=== PATIENT | female | born 1970 | race Caucasian/White ===

== ENCOUNTER 2017-06-19 15:27 | Emergency (ER) | payer MEDICARE, OTHER ==
[~2017-06-19] VITALS: Ht 170.2 cm; Wt 95.0 kg
[~2017-06-19 15:27] MED LIST: ALBU18HF2 INH; CETI10TA14 PO; CYAN10007 IM; DIAZ10TA PO; DIVA250T6 PO; DOCU-28 PO; FLUT16SP26 NS; METH750T3 PO; NARA2.5T2 PO; ONDA8TAB13 PO; POLY119P2 PO; PROC10TA PO; SERT100T10 PO; TOP100T PO; TRAM50TA2 PO; VENL150C58 PO; VENL75CA61 PO; ZOLP10TA5 PO
[2017-06-19] MEDS ORDERED: normal saline 1000ML IV soln IVB STA (15:36)
[2017-06-19] MEDS ORDERED: methylPREDNISolone sod succ 125mg/2ml vial IV ONE (15:40)
[2017-06-19] MEDS ORDERED: famotidine/PF 10 mg/ml inj IV ONE (15:40)
[2017-06-19] MEDS ORDERED: PRED10TA PO (16:41)
[2017-06-19] MEDS ORDERED: EPIN0.3P8 IM (16:41)
[2017-06-19 18:06] VITALS: BP 116/62
== END 2017-06-19 18:24 | disposition home or self-care (01) ==
LOC: ER 15:28
DX: T78.1XXA Other adverse food reactions, not elsewhere classified, initial encounter (principal); G43.909 Migraine, unspecified, not intractable, without status migrainosus; J45.909 Unspecified asthma, uncomplicated; G89.29 Other chronic pain; Z90.710 Acquired absence of both cervix and uterus; Z90.49 Acquired absence of other specified parts of digestive tract; Z98.84 Bariatric surgery status; Z56.0 Unemployment, unspecified; Z88.0 Allergy status to penicillin; Z88.8 Allergy status to other drugs, medicaments and biological substances; Z79.899 Other long term (current) drug therapy; Y92.89 Other specified places as the place of occurrence of the external cause
CPT/HCPCS: 96361; 96374; 96375; 99285; J2930

== ENCOUNTER 2017-09-02 08:53 | Emergency (ER) | payer MEDICARE, OTHER ==
[~2017-09-02] VITALS: Ht 172.7 cm; Wt 84.8 kg
[~2017-09-02 08:53] MED LIST changes: +EPIN0.3P8 IM; +PRED10TA PO; -PROC10TA PO; +PROC10TA10 PO
[2017-09-02 09:05] VITALS: BP 134/84
[2017-09-02] MEDS ORDERED: FLUT16SP2 BOTHNARES (09:19)
== END 2017-09-02 09:26 | disposition home or self-care (01) ==
LOC: ER 08:54
DX: J30.9 Allergic rhinitis, unspecified (principal); H92.01 Otalgia, right ear; G43.909 Migraine, unspecified, not intractable, without status migrainosus; G89.29 Other chronic pain; F17.210 Nicotine dependence, cigarettes, uncomplicated; Z90.49 Acquired absence of other specified parts of digestive tract; Z90.710 Acquired absence of both cervix and uterus; Z56.0 Unemployment, unspecified; Z98.84 Bariatric surgery status; Z88.0 Allergy status to penicillin; Z79.899 Other long term (current) drug therapy
CPT/HCPCS: 99283

== ENCOUNTER 2018-05-07 07:56 | Emergency (ER) | payer MEDICARE, OTHER ==
[~2018-05-07] VITALS: Ht 172.7 cm; Wt 75.0 kg
[~2018-05-07 07:56] MED LIST changes: +DIVA-74 PO; -DIVA250T6 PO; +FLUT16SP2 BOTHNARES
[2018-05-07 08:10] VITALS: BP 105/69
[2018-05-07] MEDS ORDERED: TRAM50TA2 PO (08:48)
== END 2018-05-07 09:12 | disposition home or self-care (01) ==
LOC: ER 07:57
DX: S93.401A Sprain of unspecified ligament of right ankle, initial encounter (principal); G43.909 Migraine, unspecified, not intractable, without status migrainosus; G89.29 Other chronic pain; Z90.49 Acquired absence of other specified parts of digestive tract; Z90.710 Acquired absence of both cervix and uterus; Z90.89 Acquired absence of other organs; Z98.890 Other specified postprocedural states; Z88.0 Allergy status to penicillin; Z88.8 Allergy status to other drugs, medicaments and biological substances; Z79.899 Other long term (current) drug therapy; Z56.0 Unemployment, unspecified; W19.XXXA Unspecified fall, initial encounter; Y93.89 Activity, other specified; Y92.89 Other specified places as the place of occurrence of the external cause; Y99.8 Other external cause status
CPT/HCPCS: 73610; 99284

== ENCOUNTER 2018-05-27 09:56 | Emergency (ER) | payer MEDICARE, OTHER ==
[~2018-05-27] VITALS: Ht 172.7 cm; Wt 80.5 kg
[2018-05-27 10:02] VITALS: BP 105/63
[2018-05-27] MEDS ORDERED: acetaminophen 325mg tablet PO ONE (12:00)
[2018-05-27] MEDS ORDERED: ondansetron 4mg rapidly disintigrating tab PO ONE (12:00)
[2018-05-27] MEDS ORDERED: HYDROcodone/acetaminophen 5mg/325mg tablet PO ONE (12:00)
[2018-05-27] MEDS ORDERED: morphine 4 MG/ML inj SYRINge IM ONE (12:25)
[2018-05-27] MEDS ORDERED: ketorolac trometh inj. 60 MG/2 ML VIAL IM ONE (12:55)
[2018-05-27] MEDS ORDERED: HYDR-3965 PO (12:58)
[2018-05-31] MEDS ORDERED: HYDR-3965 PO (09:11)
== END 2018-05-27 13:56 | disposition home or self-care (01) ==
LOC: ER 09:57
DX: S92.321A Displaced fracture of second metatarsal bone, right foot, initial encounter for closed fracture (principal); S92.331A Displaced fracture of third metatarsal bone, right foot, initial encounter for closed fracture; G43.909 Migraine, unspecified, not intractable, without status migrainosus; G89.29 Other chronic pain; M54.9 Dorsalgia, unspecified; Z90.49 Acquired absence of other specified parts of digestive tract; Z90.710 Acquired absence of both cervix and uterus; Z56.0 Unemployment, unspecified; Z88.0 Allergy status to penicillin; Z88.8 Allergy status to other drugs, medicaments and biological substances; X50.1XXA Overexertion from prolonged static or awkward postures, initial encounter; Y93.89 Activity, other specified; Y92.89 Other specified places as the place of occurrence of the external cause; Y99.8 Other external cause status
CPT/HCPCS: 73630; 93005; 96372; 99284; J1885; J2270

== ENCOUNTER 2018-06-02 07:07 | Inpatient (IN) | payer MEDICARE, OTHER | END 2018-06-04 14:05 | disposition home or self-care (01) | LOC: ER 07:07 → ED HOLD 10:44 → ORTHO 4S 16:15 | DX: S92.321A Displaced fracture of second metatarsal bone, right foot, initial encounter for closed fracture (principal); S92.331A Displaced fracture of third metatarsal bone, right foot, initial encounter for closed fracture; F31.9 Bipolar disorder, unspecified; J06.9 Acute upper respiratory infection, unspecified; G89.4 Chronic pain syndrome ==

== ENCOUNTER 2018-06-15 10:21 | Day surgery (SDC) | payer MEDICARE ==
[2018-06-10 12:47] LABS: BASOPHILS % (AUTO) 0.6 % (0-1); EOSINOPHILS % (AUTO) 0.4 % (0-6); LYMPHOCYTES # (AUTO) 2.1 X10'3 (1.1-4.8); LYMPHOCYTES % (AUTO) 29.4 % (21-51); MEAN CORPUSCULAR HEMOGLOBIN 32.3 PG (27.0-31.0); MEAN CORPUSCULAR HGB CONC 33.4 g/dL (33.0-36.5); MEAN CORPUSCULAR VOLUME 96.8 FL (78-98); MEAN PLATELET VOLUME 8.1 FL (7.4-10.4); MONOCYTES # (AUTO) 0.6 X10'3 (0-0.9); MONOCYTES % (AUTO) 8.2 % (2-12); NEUTROPHILS # (AUTO) 4.3 X10'3 (1.8-7.7); NEUTROPHILS % (AUTO) 61.4 % (42-75); PRE OP HEMATOCRIT 42.2 % (35.0-45.0); PRE OP HEMOGLOBIN 14.1 g/dL (12.0-16.0); PRE OP PLATELET COUNT 373 X10'3 (140-440); RED BLOOD COUNT 4.36 X10'6 (4.20-5.60); RED CELL DISTRIBUTION WIDTH 13.1 % (11.5-14.5)
[2018-06-10 14:52] LABS: ALBUMIN 3.4 G/DL (3.4-5.0); ALBUMIN/GLOBULIN RATIO 0.9 (1.1-1.5); ALKALINE PHOSPHATASE 118 IU/L (46-116); BLOOD UREA NITROGEN 13 MG/DL (7-18); BUN/CREATININE RATIO 18.6 (6.6-38.0); CALCIUM 9.3 MG/DL (8.5-10.1); CHLORIDE 107 MMOL/L (99-107); PRE OP ALT 34 U/L (30-65); PRE OP ANION GAP 10 (8-16); PRE OP AST 20 U/L (10-37); PRE OP BILIRUB, TOTAL 0.3 MG/DL (0.0-1.0); PRE OP GLUCOSE 98 MG/DL (70-104); PRE OP POTASSIUM 4.2 MMOL/L (3.4-5.1); PRE OP SODIUM 140 MMOL/L (135-145); TOTAL CARBON DIOXIDE 23.3 MMOL/L (24-32); TOTAL PROTEIN 7.4 G/DL (6.4-8.2); eGFR 89 ML/MIN
[~2018-06-15] VITALS: Ht 170.2 cm; Wt 74.0 kg
[2018-06-15] VITALS (10 sets, daily range): BP systolic 94–106; BP diastolic 47–78
[~2018-06-15 10:21] MED LIST changes: +ARIP5TAB4 PO; +BACL20TA PO; -CETI10TA14 PO; +CLON-528 PO; -CYAN10007 IM; -DIAZ10TA PO; -DOCU-28 PO; -FLUT16SP2 BOTHNARES; -FLUT16SP26 NS; -METH750T3 PO; -NARA2.5T2 PO; -ONDA8TAB13 PO; +PER5325T PO; -POLY119P2 PO; -PRED10TA PO; -PROC10TA10 PO; -SERT100T10 PO; -TRAM50TA2 PO; +TRAZ300T2 PO; -VENL150C58 PO; -VENL75CA61 PO; -ZOLP10TA5 PO; +acetaminophen 325mg tablet PO ONE; +albuterol 2.5 MG/3 ML nebule NEB ONE; +ceFAZolin 2gm in dextrose, iso 100 ML IV ONE; +famotidine 20mg tablet PO ONE; +gabapentin 300mg capsule PO ONE; +oxyCODONE SR 10mg (sust. release) tab -2 tabs (20mg) PO ONE; +ringers solution, lacted 1,000 ML IV SCH; +vancomycin inj 1,500 MG in normal saline 300ml IV soln IV ONE
[2018-06-15] MEDS ORDERED: dexamethasone sod phosphate 10mg/ml inj ONE (12:52)
[2018-06-15] MEDS ORDERED: sevoflurane 250ml liquid IH ONE (12:52)
[2018-06-15] MEDS ORDERED: ringers solution, lacted 1,000 ML IV SCH (12:57)
[2018-06-15] MEDS ORDERED: morphine 4 MG/ML inj SYRINge IV PRN ×2 (13:00)
[2018-06-15] MEDS ORDERED: ondansetron/PF 4mg/2ml inj IV PRN (13:00)
[2018-06-15] MEDS ORDERED: meperidine/PF 25mg/ml syringe IV PRN ×3 (13:00)
[2018-06-15] MEDS ORDERED: fentaNYL/PF 50MCG/1 ML 2ML syringe ONE (13:00)
[2018-06-15] MEDS ORDERED: proCHLORperazine 10 MG/2 ml inj IV PRN (13:00)
[2018-06-15] MEDS ORDERED: MIDAZolam 5mg/5ml vial ONE (13:01)
[2018-06-15] MEDS ORDERED: LIDOcaine 1%/PF 5ML 10 MG/ML VIAL ONE (13:04)
[2018-06-15] MEDS ORDERED: propofol inj 20 ML IV ONE (13:04)
[2018-06-15] MEDS ORDERED: ondansetron/PF 4mg/2ml inj ONE (14:33)
[2018-06-15] MEDS ORDERED: ROPIVAcaine 0.5% (5mg/ml) 30ml vial ONE (14:48)
--- NOTE | 2018-06-15 15:18 | NUR ---
Received from OR via [facility], accompanied by Anesthesiologist DR MOELLER and report given by Anesthesiolgist. PT DROWSY, DENIES PAIN, RIGHT FOOT/ANKLE/CALF W/DRSG COVERED W/STONE WRAP POSTERIOR SPLINT IN PLACE, TOES PWD, SKIN LAP BONDER 1-2 SECONDS. Addendum: 06/15/18 at 1616 by Marilyn Shepard RN Amended: Links added.
--- NOTE | 2018-06-15 16:48 | NUR ---
PT D/CD TO HOME, D/C INSTRUCTIONS GONE OVER AND COPIES GIVEN TO PT, PT AND S/O VERBALIZED AND DEMONSTRATE UNDERSTANDING, PT W/PROPER USE OF CRUTCHES FOR NON WEIGHT BEARING. PT D/CD HOME IN STABLE CONDITION. Addendum: 06/15/18 at 1707 by Marilyn Shepard RN Amended: Links added.
== END 2018-06-15 16:48 | disposition home or self-care (01) ==
LOC: PAS 10:21
PROVIDERS: ATTEND Orthopaedic Surgery
DX: S92.322A Displaced fracture of second metatarsal bone, left foot, initial encounter for closed fracture (principal); S92.332A Displaced fracture of third metatarsal bone, left foot, initial encounter for closed fracture; S92.342A Displaced fracture of fourth metatarsal bone, left foot, initial encounter for closed fracture; S92.352A Displaced fracture of fifth metatarsal bone, left foot, initial encounter for closed fracture; X58.XXXA Exposure to other specified factors, initial encounter; Y93.89 Activity, other specified; Y92.89 Other specified places as the place of occurrence of the external cause; Y99.8 Other external cause status
CPT/HCPCS: 28485; 36415; 80053; 82948; 85025; A6449; C1713; J0690; J1100; J2001; J2250; J2405; J2704; J3010; J3370; J7120; A7000; J2795

== ENCOUNTER 2019-04-03 11:22 | Emergency (ER) | payer MEDICARE, MEDICAID ==
[~2019-04-03] VITALS: Ht 170.2 cm; Wt 76.7 kg
[~2019-04-03 11:22] MED LIST changes: +ARIP5TAB14 PO; -ARIP5TAB4 PO; -acetaminophen 325mg tablet PO ONE; -albuterol 2.5 MG/3 ML nebule NEB ONE; -ceFAZolin 2gm in dextrose, iso 100 ML IV ONE; -famotidine 20mg tablet PO ONE; -gabapentin 300mg capsule PO ONE; -oxyCODONE SR 10mg (sust. release) tab -2 tabs (20mg) PO ONE; -ringers solution, lacted 1,000 ML IV SCH; -vancomycin inj 1,500 MG in normal saline 300ml IV soln IV ONE
--- NOTE | 2019-04-03 12:06 | NUR ---
PATIENT HERE FOR [facility] AND STATES THAT SHE HAS HX BIPOLAR DEPRESSION. STATES HER MEDICATION WAS CHANGED ON , BUT SHE HAS HAD INSOMNIA, HEADACHES. FEELS LIKE SHE NEEDS HELP.
[2019-04-03] MEDS ORDERED: LORazepam 2 mg/ml vial IV ONE (12:20)
[2019-04-03] MEDS ORDERED: divalproex sodium 250mg tablet PO ONE (12:20)
[2019-04-03] MEDS ORDERED: metoclopramide 5 mg/ml inj IV ONE (12:20)
[2019-04-03 12:38] LABS: BASOPHILS # (AUTO) 0.1 X10'3 (0-0.2); BASOPHILS % (AUTO) 0.7 % (0-1); EOSINOPHILS % (AUTO) 0.5 % (0-6); HEMATOCRIT 48.4 % (35.0-45.0); HEMOGLOBIN 16.4 g/dl (12.0-16.0); LYMPHOCYTES # (AUTO) 1.9 X10'3 (1.1-4.8); LYMPHOCYTES % (AUTO) 25.9 % (21-51); MEAN CORPUSCULAR HEMOGLOBIN 30.4 PG (27.0-31.0); MEAN CORPUSCULAR HGB CONC 33.9 g/dL (33.0-36.5); MEAN CORPUSCULAR VOLUME 89.7 FL (78-98); MEAN PLATELET VOLUME 8.8 FL (7.4-10.4); MONOCYTES # (AUTO) 0.6 X10'3 (0-0.9); MONOCYTES % (AUTO) 7.8 % (2-12); NEUTROPHILS # (AUTO) 4.8 X10'3 (1.8-7.7); NEUTROPHILS % (AUTO) 65.1 % (42-75); PLATELET COUNT 251 X10'3 (140-440); RED BLOOD COUNT 5.39 X10'6 (4.20-5.60); RED CELL DISTRIBUTION WIDTH 15.4 % (11.5-14.5); WHITE BLOOD COUNT 7.3 X10'3 (4.5-11.0)
[2019-04-03 12:53] LABS: ALANINE AMINOTRANSFERASE 20 U/L (12-78); ALBUMIN 3.9 G/DL (3.4-5.0); ALBUMIN/GLOBULIN RATIO 0.9 (1.1-1.5); ALKALINE PHOSPHATASE 121 IU/L (46-116); ANION GAP 11 (8-16); ASPARTATE AMINO TRANSFERASE 14 U/L (10-37); BILIRUBIN,TOTAL 0.3 MG/DL (0.1-1.0); BLOOD UREA NITROGEN 12 MG/DL (7-18); BUN/CREATININE RATIO 14.6 (6.6-38.0); CALCIUM 9.5 MG/DL (8.5-10.1); CHLORIDE 105 MMOL/L (99-107); CREATININE 0.82 MG/DL (0.40-0.90); GLUCOSE 121 MG/DL (70-104); POTASSIUM 4.2 MMOL/L (3.5-5.1); SODIUM 141 MMOL/L (135-145); TOTAL PROTEIN 8.4 G/DL (6.4-8.2); eGFR 74 ML/MIN
[2019-04-03 13:06] LABS: CLARITY,URINE CLEAR (Clear); COLOR,URINE YELLOW (Yellow); GLUCOSE, URINE NEGATIVE (Neg); KETONES,URINE TRACE mg/dl (Neg); LEUKOCYTE ESTERASE ,URINE NEGATIVE (Neg); NITRITES, URINE NEGATIVE (Neg); OCCULT BLOOD,URINE NEGATIVE (Neg); PROTEIN,URINE TRACE mg/dl (Neg); UROBILINOGEN,URINE 0.2 E.U/dL (0.2-1.0)
[2019-04-03 13:07] LABS: UA COLLECTION TYPE CLN CATCH MIDSTREAM
[2019-04-03 13:09] LABS: URINE AMPHETAMINE SCREEN NEGATIVE (Neg); URINE BARBITUATE SCREEN NEGATIVE (Neg); URINE BENZODIAZEPINES SCREEN NEGATIVE (Neg); URINE CANNABINOID SCREEN POSITIVE (Neg); URINE COCAINE SCREEN NEGATIVE (Neg); URINE METHADONE SCREEN NEGATIVE (Neg); URINE OPIATE SCREEN NEGATIVE (Neg); URINE PHENCYCLIDINE SCREEN NEGATIVE (Neg)
[2019-04-03 13:16] LABS: BACTERIA,URINE NONE SEEN /HPF (Neg); HYALINE CASTS 0-3 /LPF (NEGATIVE); MUCUS STRANDS MANY /LPF (Neg); RBC,URINE 0-2 /HPF (0-2); SQUAMOUS EPITHELIAL CELL,UR FEW /LPF (FEW); TRANSITIONAL EPI CELLS,URINE FEW /HPF; WBC,URINE 0-4 /HPF (0-4)
--- NOTE | 2019-04-03 17:03 | NUR ---
pt came over from main er with the techs. pt placed in 21
[2019-04-03] MEDS ORDERED: acetaminophen 325mg tablet PO ONE (18:15)
[2019-04-03] MEDS ORDERED: ondansetron 4mg rapidly disintigrating tab PO ONE (18:30)
[2019-04-03] MEDS: LORazepam 1 MG tablet PO PRN (18:31)
[2019-04-03] MEDS ORDERED: baclofen 10mg tablet PO PRN (20:00)
[2019-04-03] MEDS ORDERED: clonazePAM 0.5mg tablet PO PRN (20:00)
--- NOTE | 2019-04-03 20:49 | NUR ---
Met with pt for 1:1 to assess for suicidal ideation. Pt reports that she has a hx of bipolar and has been getting increasingly manic. pt reports not sleeping more than 2 hours for approx last 4 days. Pt was started on wellbutrin and believed that it exacerbated her moon. pt went to therapists today to report her issues and was referred here for evaluation. pt denies si but then states that she has thought about using her 's insulin.
--- NOTE | 2019-04-03 20:51 | NUR ---
pt is sleeping now, rr unlabored, will continue to monitor.
[2019-04-03] MEDS ORDERED: traZODone 150mg tablet PO SCH (21:00)
--- NOTE | 2019-04-03 21:50 | NUR ---
pt continues to sleep, rr unlabored, no s/s of distress noted.
--- NOTE | 2019-04-03 21:50 | NUR ---
Darrell white in [facility] - 04/03/19 at 2150 by BRYANT pt continue
--- NOTE | 2019-04-03 23:54 | NUR ---
pt continues to sleep, rr unlabored, no s/s of distress noted.
--- NOTE | 2019-04-04 01:29 | NUR ---
pt awoke and asked for some coffee. pt given cup of decaf coffee.
--- NOTE | 2019-04-04 03:47 | NUR ---
pt is sleeping, rr unlabored, no s/s of distress noted.
[2019-04-04] MEDS ORDERED: nicotine 21mg patch - 24 hr TD ONE (04:40)
--- NOTE | 2019-04-04 06:43 | NUR ---
PACKET SENT TO [facility]
[2019-04-04] MEDS: LORazepam 1 MG tablet PO PRN ×2 (08:00→16:07)
--- NOTE | 2019-04-04 12:06 | NUR ---
pt is lying in bed quietly. pt is anxious about getting a bed in [facility].
--- NOTE | 2019-04-04 13:05 | NUR ---
LUNCH TRAY PLACED AT BEDSIDE BY NAEL QUEEN.
--- NOTE | 2019-04-04 13:08 | NUR ---
WALKED WITH PATIENT AND TALKED, PATIENT STATES THAT SHE IS ANXIOUS AND ASKING ABOUT HER HOME MEDICATIONS. SHE IS TALKING FAST ANS CRYING WHEN TSLKING ABOUT HOW BORED SHE IS HERE. PATIENT REASSURED AND IS WORKING ON FOCUSING ON THE POSITIEVS IN HER LIFE
--- NOTE | 2019-04-04 13:25 | NUR ---
REPORT FROM TRUPTI RN AT 1215 REPORT TO ARTUR RAE AT 1313
--- NOTE | 2019-04-04 13:30 | NUR ---
RECEIVED REPORT FROM YARA, RN, PT. NAVEED RAIN, HARPAL IN [facility]
[2019-04-04] MEDS ORDERED: BUPR100T5 PO (13:51)
--- NOTE | 2019-04-04 14:15 | NUR ---
PT. CO INCREASED ANXIETY. INFORMED PT. THAT HER MED LIST IS BEING UPDATED TO REFLECT WELLBUTRIN AND WOULD RECEIVE NEXT DOSE. PT. GIVEN BACLOFEN FOR MUSCLE SPASMS IN FOOT PER PRN SCHEDULE
--- NOTE | 2019-04-04 15:42 | NUR ---
RECEIVED CALL FROM YELENA IN [facility], PT HAS BEEN ACCEPTED BUT WILL NOT GET PT FOR APPROX 1 HOUR, NOTIFIED PROVIDER TO PROCESS DISCHARGE PAPERWORK, WILL DEPART PT FROM SYSTEM WHEN YELENA WITH [facility] CALLS TO SAY THEY ARE READY AND COMING TO GET THE PATIENT, PRIMARY NURSE YARA INFORMED.
[2019-04-04 16:28] VITALS: BP 116/64
== END 2019-04-04 16:38 ==
LOC: ER 11:23
DX: F31.9 Bipolar disorder, unspecified (principal); G43.909 Migraine, unspecified, not intractable, without status migrainosus; G89.29 Other chronic pain; J45.909 Unspecified asthma, uncomplicated; Z90.49 Acquired absence of other specified parts of digestive tract; Z90.710 Acquired absence of both cervix and uterus; Z98.84 Bariatric surgery status; Z56.0 Unemployment, unspecified; Z91.018 Allergy to other foods; Z88.0 Allergy status to penicillin; Z88.8 Allergy status to other drugs, medicaments and biological substances; Z91.010 Allergy to peanuts; Z79.899 Other long term (current) drug therapy
CPT/HCPCS: 36415; 80053; 80305; 81001; 84443; 85025; 96374; 96375; 99285; J2060; J2765

== ENCOUNTER 2019-04-25 16:14 | Emergency (ER) | payer MEDICARE, MEDICAID ==
[~2019-04-25] VITALS: Ht 170.2 cm; Wt 81.8 kg
[~2019-04-25 16:14] MED LIST changes: -ALBU18HF2 INH; -ARIP5TAB14 PO; -CLON-528 PO; +CLON1TAB12 PO; -DIVA-74 PO; -EPIN0.3P8 IM; +HYDR-3686 PO; +LIT300C PO; +LITH300C PO; +NICO-687 TD; -PER5325T PO; -TOP100T PO; +TOP25T PO; -TRAZ300T2 PO; +ZOLP10TA PO
[2019-04-25] MEDS ORDERED: dexamethasone 4mg tablet PO ONE (18:40)
[2019-04-25] MEDS ORDERED: metoclopramide 10mg tablet PO ONE (18:40)
[2019-04-25] MEDS ORDERED: LORazepam 1 MG tablet PO ONE (18:40)
--- NOTE | 2019-04-25 19:00 | NUR ---
The patient was seen at the bedside. She was tearful and upset. She reports that she has a headache 09/21. She also reports that since being discharged from [facility] she has been sleeping poorly and felt it was the lithium she was on. She complained about the PA she saw at the [facility] and stated she would not be returning to see her. She also complained about the staff here. PA at the bedside and interviewing the patient.
[2019-04-25] MEDS ORDERED: LORazepam 2 mg/ml vial IM ONE (19:05)
[2019-04-25] MEDS ORDERED: CETI10CA PO (19:35)
[2019-04-25 19:55] LABS: BASOPHILS # (AUTO) 0.1 X10'3 (0-0.2); BASOPHILS % (AUTO) 0.9 % (0-1); EOSINOPHILS # (AUTO) 0.1 X10'3 (0-0.9); EOSINOPHILS % (AUTO) 1.2 % (0-6); HEMOGLOBIN 13.5 g/dl (12.0-16.0); LYMPHOCYTES % (AUTO) 28.2 % (21-51); MEAN CORPUSCULAR HEMOGLOBIN 30.9 PG (27.0-31.0); MEAN CORPUSCULAR HGB CONC 33.8 g/dL (33.0-36.5); MEAN CORPUSCULAR VOLUME 91.4 FL (78-98); MEAN PLATELET VOLUME 8.1 FL (7.4-10.4); MONOCYTES # (AUTO) 0.5 X10'3 (0-0.9); MONOCYTES % (AUTO) 6.7 % (2-12); NEUTROPHILS # (AUTO) 4.4 X10'3 (1.8-7.7); PLATELET COUNT 291 X10'3 (140-440); RED BLOOD COUNT 4.38 X10'6 (4.20-5.60); RED CELL DISTRIBUTION WIDTH 15.4 % (11.5-14.5); WHITE BLOOD COUNT 7.1 X10'3 (4.5-11.0)
[2019-04-25 20:02] LABS: ALANINE AMINOTRANSFERASE 21 U/L (12-78); ALBUMIN 3.1 G/DL (3.4-5.0); ALBUMIN/GLOBULIN RATIO 0.9 (1.1-1.5); ALKALINE PHOSPHATASE 100 IU/L (46-116); ANION GAP 8 (8-16); ASPARTATE AMINO TRANSFERASE 16 U/L (10-37); BILIRUBIN,TOTAL 0.3 MG/DL (0.1-1.0); BLOOD UREA NITROGEN 11 MG/DL (7-18); BUN/CREATININE RATIO 12.5 (6.6-38.0); CALCIUM 9.2 MG/DL (8.5-10.1); CHLORIDE 109 MMOL/L (99-107); CREATININE 0.88 MG/DL (0.40-0.90); GLUCOSE 141 MG/DL (70-104); POTASSIUM 3.8 MMOL/L (3.5-5.1); SODIUM 142 MMOL/L (135-145); TOTAL CARBON DIOXIDE 25.4 MMOL/L (24-32); TOTAL PROTEIN 6.7 G/DL (6.4-8.2); eGFR 68 ML/MIN
--- NOTE | 2019-04-25 20:15 | NUR ---
The patient is complaining of continued headache. Spoke with PA and made her aware and the patient's desire to speak with the patient.
--- NOTE | 2019-04-25 20:45 | NUR ---
The patient up to the station and took her purse and jacket and stated she was leaving. She did stay and review her rx and dc paper work.
[2019-04-25 20:58] VITALS: BP 108/73
== END 2019-04-25 21:09 | disposition home or self-care (01) ==
LOC: ER 16:15
DX: F31.9 Bipolar disorder, unspecified (principal); G43.909 Migraine, unspecified, not intractable, without status migrainosus; J45.909 Unspecified asthma, uncomplicated; G89.29 Other chronic pain; F17.200 Nicotine dependence, unspecified, uncomplicated; F12.90 Cannabis use, unspecified, uncomplicated; Z56.0 Unemployment, unspecified; Z90.49 Acquired absence of other specified parts of digestive tract; Z90.710 Acquired absence of both cervix and uterus; Z98.84 Bariatric surgery status; Z88.6 Allergy status to analgesic agent; Z91.010 Allergy to peanuts; Z79.899 Other long term (current) drug therapy; Z88.0 Allergy status to penicillin
CPT/HCPCS: 36415; 80053; 80178; 85025; 96372; 99284; J2060; J8597

== ENCOUNTER 2019-04-26 22:50 | Emergency (ER) | payer MEDICARE, MEDICAID ==
[~2019-04-26] VITALS: Ht 170.2 cm; Wt 82.7 kg
[~2019-04-26 22:50] MED LIST changes: +CETI10CA PO
[2019-04-27] MEDS ORDERED: ketorolac trometh. 30mg/ml inj. IV ONE (00:20)
[2019-04-27] MEDS ORDERED: normal saline 1000ML IV soln IVB ONE (00:20)
[2019-04-27] MEDS ORDERED: proCHLORperazine 10 MG/2 ml inj IV ONE ×2 (00:20→01:30)
[2019-04-27] MEDS ORDERED: morphine 2 MG/ML inj. syringe IV PRN (00:20)
[2019-04-27] MEDS ORDERED: haloperidol lactate 5mg/ml inj IM ONE (00:20)
[2019-04-27 01:04] LABS: BASOPHILS % (AUTO) 0.7 % (0-1); EOSINOPHILS # (AUTO) 0.1 X10'3 (0-0.9); EOSINOPHILS % (AUTO) 1.9 % (0-6); HEMATOCRIT 40.8 % (35.0-45.0); HEMOGLOBIN 13.9 g/dl (12.0-16.0); LYMPHOCYTES # (AUTO) 2.6 X10'3 (1.1-4.8); LYMPHOCYTES % (AUTO) 36.6 % (21-51); MEAN CORPUSCULAR VOLUME 91.3 FL (78-98); MEAN PLATELET VOLUME 8.3 FL (7.4-10.4); MONOCYTES # (AUTO) 0.6 X10'3 (0-0.9); MONOCYTES % (AUTO) 8.9 % (2-12); NEUTROPHILS # (AUTO) 3.7 X10'3 (1.8-7.7); NEUTROPHILS % (AUTO) 51.9 % (42-75); PLATELET COUNT 291 X10'3 (140-440); RED BLOOD COUNT 4.47 X10'6 (4.20-5.60); RED CELL DISTRIBUTION WIDTH 15.6 % (11.5-14.5); WHITE BLOOD COUNT 7.1 X10'3 (4.5-11.0)
[2019-04-27 01:15] LABS: ALANINE AMINOTRANSFERASE 32 U/L (12-78); ALBUMIN 3.3 G/DL (3.4-5.0); ALBUMIN/GLOBULIN RATIO 0.9 (1.1-1.5); ALKALINE PHOSPHATASE 112 IU/L (46-116); ANION GAP 8 (8-16); ASPARTATE AMINO TRANSFERASE 28 U/L (10-37); BILIRUBIN,TOTAL 0.3 MG/DL (0.1-1.0); BLOOD UREA NITROGEN 13 MG/DL (7-18); BUN/CREATININE RATIO 14.3 (6.6-38.0); CALCIUM 8.7 MG/DL (8.5-10.1); CHLORIDE 111 MMOL/L (99-107); CREATININE 0.91 MG/DL (0.40-0.90); GLUCOSE 103 MG/DL (70-104); POTASSIUM 3.5 MMOL/L (3.5-5.1); SODIUM 145 MMOL/L (135-145); TOTAL CARBON DIOXIDE 25.6 MMOL/L (24-32); TOTAL PROTEIN 6.9 G/DL (6.4-8.2); eGFR 66 ML/MIN
[2019-04-27] MEDS ORDERED: diphenhydrAMINE 50 mg/ml inj IV ONE (01:30)
[2019-04-27] MEDS ORDERED: LORazepam 2 mg/ml vial IV ONE (01:30)
[2019-04-27] MEDS: haloperidol lactate 5mg/ml inj IM ONE ×2 (01:53→02:13)
--- NOTE | 2019-04-27 02:09 | NUR ---
pt fell asleep prior to haldol admin, woke her told her that she appeared to be doing ok without it, she said, yes, I do not want the haldol, pt is on monitor
[2019-04-27] MEDS ORDERED: DIVA500T2 PO (04:23)
[2019-04-27 04:38] VITALS: BP 96/55
== END 2019-04-27 04:39 | disposition home or self-care (01) ==
LOC: ER 22:50
DX: G43.909 Migraine, unspecified, not intractable, without status migrainosus (principal); R42 Dizziness and giddiness; F41.9 Anxiety disorder, unspecified; G47.00 Insomnia, unspecified; J45.909 Unspecified asthma, uncomplicated; G89.29 Other chronic pain; F31.9 Bipolar disorder, unspecified; F12.90 Cannabis use, unspecified, uncomplicated; Z56.0 Unemployment, unspecified; Z90.49 Acquired absence of other specified parts of digestive tract; Z90.710 Acquired absence of both cervix and uterus; Z98.84 Bariatric surgery status; Z88.6 Allergy status to analgesic agent; Z91.010 Allergy to peanuts; Z79.899 Other long term (current) drug therapy
CPT/HCPCS: 36415; 80053; 83735; 85025; 96361; 96372; 96374; 96375; 96376; 99284; J0780; J1200; J1630; J1885; J2060; J2270; J7030

== ENCOUNTER 2020-01-20 13:40 | Emergency (ER) | payer MEDICAID, MEDICARE ==
[~2020-01-20] VITALS: Ht 172.7 cm; Wt 82.3 kg
[~2020-01-20 13:40] MED LIST changes: +DIVA500T2 PO
[2020-01-20 13:50] VITALS: BP 114/69
[2020-01-20] MEDS ORDERED: CLIN150C8 PO (16:12)
[2020-01-20] MEDS ORDERED: DOXY150T5 PO (21:05)
== END 2020-01-20 16:24 | disposition home or self-care (01) ==
LOC: ER 13:41
DX: H66.92 Otitis media, unspecified, left ear (principal); G43.909 Migraine, unspecified, not intractable, without status migrainosus; J45.909 Unspecified asthma, uncomplicated; G89.29 Other chronic pain; F31.9 Bipolar disorder, unspecified; F17.200 Nicotine dependence, unspecified, uncomplicated; F12.90 Cannabis use, unspecified, uncomplicated; Z90.89 Acquired absence of other organs; Z90.49 Acquired absence of other specified parts of digestive tract; Z90.710 Acquired absence of both cervix and uterus; Z98.890 Other specified postprocedural states; Z56.0 Unemployment, unspecified; Z88.0 Allergy status to penicillin; Z88.8 Allergy status to other drugs, medicaments and biological substances; Z91.010 Allergy to peanuts; Z88.6 Allergy status to analgesic agent; Z79.2 Long term (current) use of antibiotics; Z79.899 Other long term (current) drug therapy
CPT/HCPCS: 99283

== ENCOUNTER 2020-03-03 14:23 | Emergency (ER) | payer MEDICARE ==
[~2020-03-03] VITALS: Ht 167.6 cm; Wt 77.3 kg
[2020-03-03] MEDS ORDERED: proCHLORperazine 10mg tablet PO ONE (14:50)
[2020-03-03] MEDS ORDERED: PROC25SU31 RC (15:15)
[2020-03-03] MEDS ORDERED: haloperidol lactate 5mg/ml inj IM ONE (15:30)
[2020-03-03 16:13] LABS: BASOPHILS # (AUTO) 0.1 X10'3 (0-0.2); BASOPHILS % (AUTO) 1.4 % (0-1); EOSINOPHILS % (AUTO) 0.1 % (0-6); HEMATOCRIT 46.3 % (35.0-45.0); HEMOGLOBIN 15.6 g/dl (12.0-16.0); LYMPHOCYTES # (AUTO) 2.4 X10'3 (1.1-4.8); LYMPHOCYTES % (AUTO) 31.2 % (21-51); MEAN CORPUSCULAR HEMOGLOBIN 33.1 PG (27.0-31.0); MEAN CORPUSCULAR HGB CONC 33.7 g/dL (33.0-36.5); MEAN CORPUSCULAR VOLUME 98.2 FL (78-98); MEAN PLATELET VOLUME 9.2 FL (7.4-10.4); MONOCYTES # (AUTO) 0.7 X10'3 (0-0.9); MONOCYTES % (AUTO) 8.8 % (2-12); NEUTROPHILS # (AUTO) 4.5 X10'3 (1.8-7.7); NEUTROPHILS % (AUTO) 58.5 % (42-75); PLATELET COUNT 187 X10'3 (140-440); RED BLOOD COUNT 4.72 X10'6 (4.20-5.60); RED CELL DISTRIBUTION WIDTH 13.1 % (11.5-14.5); WHITE BLOOD COUNT 7.6 X10'3 (4.5-11.0)
[2020-03-03 16:17] LABS: CLARITY,URINE SLIGHTLY CLOUDY (Clear); COLOR,URINE YELLOW (Yellow); GLUCOSE, URINE NEGATIVE (Neg); KETONES,URINE 15 mg/dl (Neg); LEUKOCYTE ESTERASE ,URINE NEGATIVE (Neg); NITRITES, URINE NEGATIVE (Neg); OCCULT BLOOD,URINE NEGATIVE (Neg); PROTEIN,URINE NEGATIVE (Neg); UROBILINOGEN,URINE 0.2 E.U/dL (0.2-1.0)
[2020-03-03 16:18] LABS: URINE HCG NEGATIVE (NEG)
[2020-03-03 16:20] LABS: UA COLLECTION TYPE CLN CATCH MIDSTREAM
[2020-03-03 16:22] LABS: HYALINE CASTS 0-3 /LPF (NEGATIVE); MUCUS STRANDS MODERATE /LPF (Neg); SQUAMOUS EPITHELIAL CELL,UR FEW /LPF (FEW)
[2020-03-03 16:23] LABS: BACTERIA,URINE 1+ /HPF (Neg); RBC,URINE 0-2 /HPF (0-2); WBC,URINE 0-4 /HPF (0-4)
[2020-03-03 16:24] LABS: ALANINE AMINOTRANSFERASE 22 U/L (12-78); ALBUMIN 3.8 G/DL (3.4-5.0); ALBUMIN/GLOBULIN RATIO 1.1 (1.1-1.5); ALKALINE PHOSPHATASE 90 IU/L (46-116); ANION GAP 11 (8-16); ASPARTATE AMINO TRANSFERASE 13 U/L (10-37); BILIRUBIN,TOTAL 0.4 MG/DL (0.1-1.0); BLOOD UREA NITROGEN 10 MG/DL (7-18); BUN/CREATININE RATIO 10.3 (6.6-38.0); CHLORIDE 106 MMOL/L (99-107); CREATININE 0.97 MG/DL (0.40-0.90); GLUCOSE 96 MG/DL (70-104); LIPASE 72 U/L (73-393); POTASSIUM 3.8 MMOL/L (3.5-5.1); SODIUM 141 MMOL/L (135-145); TOTAL CARBON DIOXIDE 23.6 MMOL/L (24-32); TOTAL PROTEIN 7.4 G/DL (6.4-8.2); eGFR 61 ML/MIN
[2020-03-03 17:09] VITALS: BP 101/63
== END 2020-03-03 17:13 | disposition home or self-care (01) ==
LOC: ER 14:23
DX: R11.2 Nausea with vomiting, unspecified (principal); R42 Dizziness and giddiness; R09.81 Nasal congestion; R05 Cough; R19.7 Diarrhea, unspecified; G43.909 Migraine, unspecified, not intractable, without status migrainosus; J45.909 Unspecified asthma, uncomplicated; G89.29 Other chronic pain; M54.9 Dorsalgia, unspecified; F31.9 Bipolar disorder, unspecified; F17.200 Nicotine dependence, unspecified, uncomplicated; Z56.0 Unemployment, unspecified; F12.10 Cannabis abuse, uncomplicated; Z87.81 Personal history of (healed) traumatic fracture; Z88.0 Allergy status to penicillin; Z88.8 Allergy status to other drugs, medicaments and biological substances; Z88.6 Allergy status to analgesic agent; Z91.010 Allergy to peanuts; Z79.899 Other long term (current) drug therapy; Z20.828 Contact with and (suspected) exposure to other viral communicable diseases
CPT/HCPCS: 36415; 71045; 80053; 81001; 81025; 83690; 85025; 87635; 96372; 99284; J1630; Q0164

== ENCOUNTER 2020-06-06 10:05 | Emergency (ER) | payer MEDICARE ==
[~2020-06-06] VITALS: Ht 170.2 cm; Wt 75.0 kg
[2020-06-06 10:26] VITALS: BP 92/57
== END 2020-06-06 10:55 | disposition left against medical advice (07) ==
LOC: ER 10:06
DX: H92.09 Otalgia, unspecified ear (principal); Z53.21 Procedure and treatment not carried out due to patient leaving prior to being seen by health care provider

== ENCOUNTER 2020-09-30 08:51 | Emergency (ER) | payer MEDICARE ==
[~2020-09-30] VITALS: Ht 170.2 cm; Wt 81.0 kg
[2020-09-30] MEDS ORDERED: bupivacaine 0.25%/epinephrine 1:200,000 inj (contains preserv. MDV) IJ ONE (10:05)
[2020-09-30] MEDS ORDERED: BUPIVAcaine 0.5% W/EPI /PF 10ml vial IJ STA (10:17)
[2020-09-30] MEDS ORDERED: clindamycin 150mg capsule PO ONE ×2 (11:00)
[2020-09-30] MEDS ORDERED: CLIN150C8 PO (11:02)
[2020-09-30 11:21] VITALS: BP 116/58
== END 2020-09-30 11:27 | disposition home or self-care (01) ==
LOC: ER 08:52
DX: S03.2XXA Dislocation of tooth, initial encounter (principal); K04.7 Periapical abscess without sinus; H65.01 Acute serous otitis media, right ear; G43.909 Migraine, unspecified, not intractable, without status migrainosus; J45.909 Unspecified asthma, uncomplicated; G89.29 Other chronic pain; F12.90 Cannabis use, unspecified, uncomplicated; Z90.49 Acquired absence of other specified parts of digestive tract; Z98.890 Other specified postprocedural states; Z90.710 Acquired absence of both cervix and uterus; Z90.89 Acquired absence of other organs; Z56.0 Unemployment, unspecified; Z91.010 Allergy to peanuts; Z88.0 Allergy status to penicillin; Z88.8 Allergy status to other drugs, medicaments and biological substances; Z79.2 Long term (current) use of antibiotics; Z79.899 Other long term (current) drug therapy; X58.XXXA Exposure to other specified factors, initial encounter; Y93.89 Activity, other specified; Y92.89 Other specified places as the place of occurrence of the external cause; Y99.8 Other external cause status
CPT/HCPCS: 64400; 99284

== ENCOUNTER 2021-09-05 05:55 | Emergency (ER) | payer BC, MEDICARE ==
[~2021-09-05] VITALS: Ht 170.2 cm; Wt 97.7 kg
[~2021-09-05 05:55] MED LIST changes: +CLIN150C8 PO
[2021-09-05 06:10] VITALS: BP 108/63
[2021-09-05] MEDS ORDERED: clindamycin 150mg capsule PO ONE (08:15)
[2021-09-05] MEDS ORDERED: MELO-102 PO (08:21)
[2021-09-05] MEDS ORDERED: CLIN150C2 PO (08:34)
[2021-09-05] MEDS ORDERED: HYDR-3965 PO (08:51)
== END 2021-09-05 09:02 | disposition home or self-care (01) ==
LOC: ER 05:56
DX: K04.7 Periapical abscess without sinus (principal); G43.909 Migraine, unspecified, not intractable, without status migrainosus; J45.909 Unspecified asthma, uncomplicated; G89.29 Other chronic pain; F12.90 Cannabis use, unspecified, uncomplicated; F17.200 Nicotine dependence, unspecified, uncomplicated; Z87.81 Personal history of (healed) traumatic fracture; Z90.49 Acquired absence of other specified parts of digestive tract; Z90.710 Acquired absence of both cervix and uterus; Z98.84 Bariatric surgery status; Z56.0 Unemployment, unspecified; Z88.8 Allergy status to other drugs, medicaments and biological substances; Z88.0 Allergy status to penicillin; Z91.010 Allergy to peanuts; Z79.2 Long term (current) use of antibiotics; Z79.899 Other long term (current) drug therapy
CPT/HCPCS: 99283